=== PATIENT | female | born 1960 | race Caucasian/White ===

== ENCOUNTER 2018-05-06 01:02 | Emergency (ER) | payer MEDICAID, SELFPAY ==
--- NOTE | 2018-05-06 01:22 | ED.DCSUM_ITS ---
- ER Visit Summary Date of Service: 05/06/18 Chief Complaint: Cardiac arrest History of Present Illness: The patient is a 57 F who presents in cardiac arrest. She has a history of hypertension per the paramedics but really no other significant medical history. She had been complaining of a severe headache. She then went unresponsive. CPR was started by bystanders. EMS continued CPR in route and did establish an airway with a Zeus airway. She has been in refractory ventricular fibrillation. They note that they had good capnography waveform at 40-45. She underwent defibrillation 10 times she was also given 5 doses of epinephrine 1 amp of bicarbonate and 450 mg of amiodarone. She never had return of spontaneous circulation. At the time of arrival to the emergency department she had had at least 1 hour of downtime. Physical Examination: No spontaneous respirations no palpable central pulses No evidence of trauma Cyanotic Abdomen soft and nondistended Zeus airway in place Equal breath sounds bilaterally with bagging Emergency Department Course and Treatment: Cardiac monitoring showed refractory ventricular fibrillation. Airway was confirmed by auscultation and with capnography here. Capnography initially 18 but did improve to about 30 with high quality CPR. Patient was given epinephrine and bicarbonate here. She underwent defibrillation at 200 J 3 times. She briefly had PEA but promptly returned to ventricular fibrillation. [id number] bedside ultrasound did not show significant pericardial effusion. I spoke to family and discussed that given prolonged downtime with extensive shocks multiple medications further attempts at resuscitation were futile and attempts at resuscitation were discontinued and patient pronounced . Treatment Plan: [] Disposition: Impression: Ventricular fibrillation Cardiopulmonary arrest This note was generated with [employer] dictation software. It may contain incorrect words, spelling, and punctuation that were not noted in review of the chart prior to signing ED Disposition - Plan for ED Patient: Chief Complaint: CPR Referrals: Marcos Cadet MD [Primary Care Provider] -
[2018-05-06 01:43] VITALS: PULSE 125; PULSE 131; RESP 32; RESP 36; O2SAT 46; O2SAT 70; O2SAT 85
--- NOTE | 2018-05-06 02:03 | ED.RN ---
FAMILY AT THE BEDSIDE
== END 2018-05-06 01:14 ==
PROVIDERS: Emergency Provider Emergency Medicine; Family Provider Family Medicine; PCP Family Medicine
DX: I49.01 Ventricular fibrillation (principal); I46.9 Cardiac arrest, cause unspecified; I10 Essential (primary) hypertension
CPT/HCPCS: 92950; 99291; J7030; A4216